=== PATIENT | male | born 1950 | race Caucasian/White ===

== ENCOUNTER 2018-04-26 08:14 | Day surgery (SDC) | payer MEDICARE, BC ==
[~2018-04-26 08:14] MED LIST: Lactated Ringers 1,000 ML IV SCH; Sodium Chloride 0.9% 10 ML Syringe FLUSH PRN
[2018-04-26] MEDS ORDERED: Propofol 200 MG/20 ML SDV ONE ×2 (09:22→09:37)
[2018-04-26] MEDS ORDERED: fentaNYL 100 MCG/2 ML SDV ONE (09:22)
--- NOTE | 2018-04-26 13:51 | OR ---
PREOPERATIVE DIAGNOSIS: Screening colonoscopy. POSTOPERATIVE DIAGNOSIS: Normal colonoscopic exam. PROCEDURE PROPOSED: Total flexible colonoscopy. PROCEDURE DONE: Total flexible colonoscopy. INDICATION: This is a 67-year-old gentleman who comes in for colonic surveillance for screening purposes. His last examination was 10 years ago. TECHNIQUE AND FINDINGS: The patient was brought to the endoscopy suite, placed in left lateral decubitus position. He was sedated per [employer] with propofol. The flexible video colonoscope was then passed transanally and under visualization advanced to the cecum. Examination revealed normal ascending, transverse, descending, sigmoid, and rectal colon. There was no evidence of any polyps, colitis. He had some very minimal diverticular disease in the sigmoid region, just noting 1 or 2 diverticular orifices, and the rectum was normal. The scope was then withdrawn. He tolerated the procedure well. FINAL IMPRESSION: Essentially normal colonoscopic exam. PLAN: The patient was reassured. I felt he could wait 10 years before he needs a repeat colonoscopy. SCM: 04/26/2018 11:05:07 MODL: 04/26/2018 13:44:31 /[id number]
== END 2018-04-26 12:15 | disposition home or self-care (01) ==
LOC: VM.SDS 08:14
PROVIDERS: ATTEND Surgery
DX: Z12.11 Encounter for screening for malignant neoplasm of colon (principal); I10 Essential (primary) hypertension; E66.9 Obesity, unspecified; Z68.31 Body mass index [BMI] 31.0-31.9, adult; E78.5 Hyperlipidemia, unspecified; N40.1 Benign prostatic hyperplasia with lower urinary tract symptoms; R39.11 Hesitancy of micturition; R35.1 Nocturia; Z87.891 Personal history of nicotine dependence; Z79.899 Other long term (current) drug therapy
CPT/HCPCS: G0121; J2704; J3010; J7120; 00812